=== PATIENT | female | born 1990 | race African-American/Black ===

== ENCOUNTER 2019-06-04 07:14 | Emergency (ER) | payer MEDICAID ==
[~2019-06-04] VITALS: Ht 170.2 cm; Wt 61.0 kg
[2019-06-04] MEDS ORDERED: ACETAMINOPHEN 500MG TABLET PO ONE (08:30)
[2019-06-04 09:49] VITALS: BP 121/76
== END 2019-06-04 09:50 | disposition home or self-care (01) ==
LOC: ER 07:14
DX: J06.9 Acute upper respiratory infection, unspecified (principal)
CPT/HCPCS: 87070; 87077; 87430; 99283

== ENCOUNTER 2023-01-09 04:23 | Emergency (ER) | payer MEDICAID, OTHER ==
[~2023-01-09] VITALS: Ht 170.2 cm; Wt 56.7 kg
[2023-01-09 04:37] VITALS: BP 111/59
== END 2023-01-09 05:30 | disposition left against medical advice (07) ==
LOC: ER 04:23
DX: Z53.21 Procedure and treatment not carried out due to patient leaving prior to being seen by health care provider (principal)
CPT/HCPCS: 99281

== ENCOUNTER 2023-05-26 05:55 | Observation (INO) | payer BC, MEDICAID, OTHER ==
[~2023-05-26] VITALS: Ht 170.2 cm; Wt 64.9 kg
== END 2023-05-26 09:25 | disposition home or self-care (01) ==
LOC: 8 EST LDRP 05:55
PROVIDERS: ADMIT Obstetrics & Gynecology; ATTEND Obstetrics & Gynecology
DX: O12.02 Gestational edema, second trimester (principal); Z3A.25 25 weeks gestation of pregnancy
CPT/HCPCS: 59025; 93970; 76805; G0378 ×2; 99281

== ENCOUNTER 2024-08-14 08:32 | Emergency (ER) | payer MEDICAID ==
[~2024-08-14] VITALS: Ht 170.2 cm; Wt 70.0 kg
[2024-08-14 08:39] VITALS: O2SAT 99
[2024-08-14 09:41] LABS: CLARITY URINE CLOUDY (CLEAR); COLOR URINE ORANGE (YELLOW); GLUCOSE URINE NEGATIVE (NEGATIVE); KETONES URINE NEGATIVE (NEGATIVE); LEUKOCYTE ESTERASE URINE 2+ (NEGATIVE); NITRITE URINE NEGATIVE (NEGATIVE); OCCULT BLOOD URINE 3+ (NEGATIVE); PH URINE 8.5 (4.5-8.0); PROTEIN URINE 1+ (NEGATIVE); SPECIFIC GRAVITY URINE 1.016 (1.005-1.030)
[2024-08-14 10:09] LABS: RBC URINE TNTC /hpf (0-2); SQUAMOUS EPITHELIAL CELL URINE 2+ /lpf (RARE/1+)
[2024-08-14 10:17] LABS: BACTERIA URINE 2+; WBC URINE 25-50 /hpf (0-2)
[2024-08-14 10:18] LABS: TRICHOMONAS URINE FEW
[2024-08-14] MEDS ORDERED: CEPH500C2 MT (10:29)
[2024-08-14] MEDS ORDERED: FLUC200T MT (10:29)
[2024-08-14 10:36] VITALS: BP 121/54; PULSE 80; RESP 16; TEMP 36.72516; O2SAT 100
[2024-08-14] MEDS ORDERED: METR-167 MT (12:20)
== END 2024-08-14 10:35 | disposition home or self-care (01) ==
LOC: ER 08:44
DX: N30.90 Cystitis, unspecified without hematuria (principal)
CPT/HCPCS: 81003; 99283

== ENCOUNTER 2024-08-26 22:24 | Emergency (ER) | payer BC, MEDICAID ==
[~2024-08-26] VITALS: Ht 170.2 cm; Wt 67.0 kg
[~2024-08-26 22:24] MED LIST: CEPH500C2 MT; FLUC200T MT; METR-167 MT
[2024-08-26 22:27] VITALS: O2SAT 100
[2024-08-26 22:39] VITALS: TEMP 98.5
[2024-08-27 00:25] VITALS: BP 143/93; PULSE 83; RESP 16
[2024-08-27] MEDS: KETOROLAC 15MG/ML VIAL IM ONE (00:25)
[2024-08-27 00:26] LABS: CLARITY URINE CLOUDY (CLEAR); COLOR URINE YELLOW (YELLOW); GLUCOSE URINE NEGATIVE (NEGATIVE); KETONES URINE NEGATIVE (NEGATIVE); LEUKOCYTE ESTERASE URINE 3+ (NEGATIVE); NITRITE URINE NEGATIVE (NEGATIVE); OCCULT BLOOD URINE 1+ (NEGATIVE); PROTEIN URINE 1+ (NEGATIVE); SPECIFIC GRAVITY URINE 1.021 (1.005-1.030); UROBILINOGEN URINE 0.2 E.U./dL (0.2-1.0)
[2024-08-27] MEDS ORDERED: CEFP100T8 MT (00:56)
[2024-08-27] MEDS ORDERED: VALA500T55 MT (00:56)
[2024-08-27 01:54] LABS: AMORPHOUS SEDIMENT URINE 1+ /lpf; SQUAMOUS EPITHELIAL CELL URINE 2+ /lpf (RARE/1+); YEAST URINE NONE SEEN
[2024-08-27 02:07] LABS: WBC URINE 15-25 /hpf (0-2)
[2024-08-27 02:08] LABS: BACTERIA URINE 1+
[2024-08-27 02:09] LABS: URIC ACID CRYSTALS URINE 1+ /lpf
== END 2024-08-27 01:09 | disposition home or self-care (01) ==
LOC: ER 22:24
DX: N30.90 Cystitis, unspecified without hematuria (principal); Z98.890 Other specified postprocedural states
CPT/HCPCS: 99283; 81003; 81025; 87086; 87077; 96372; J1885; Z7610